=== PATIENT | female | born 1965 | race American Indian/Alaskan Native ===

== ENCOUNTER 2017-07-30 07:29 | Day surgery (SDC) | payer OTHER ==
[2017-07-30] MEDS ORDERED: MARCAINE 0.5% 30 ML INFILTRATI ONE (07:50)
[2017-07-30] MEDS ORDERED: XYLOCAINE 1% 20 mL ONE ×2 (07:50→08:20)
[2017-07-30] MEDS ORDERED: DECADRON ONE ×2 (07:51→10:10)
[2017-07-30] MEDS ORDERED: SUBLIMAZE IV NR (07:57)
[2017-07-30] MEDS ORDERED: DILAUDID IV PRN (07:59)
[2017-07-30] MEDS ORDERED: PERCOCET 5/325 PO PRN (07:59)
[2017-07-30] MEDS ORDERED: PEPCID IV NR (08:00)
[2017-07-30] MEDS ORDERED: VERSED IV NR (08:00)
[2017-07-30] MEDS ORDERED: NACL 0.9% 1000 ML 1,000 ML IV SCH (08:00)
[2017-07-30] MEDS ORDERED: ANCEF/STERILE WATER 2 GM/20 ML IV NR (08:00)
[2017-07-30] MEDS ORDERED: NACL BACTERIOSTATIC INFILTRATI ONE (08:10)
[2017-07-30] MEDS ORDERED: MARCAINE 0.25% INFILTRATI ONE ×3 (08:20→10:45)
[2017-07-30] MEDS ORDERED: ADRENALIN ONE (08:20)
--- NOTE | 2017-07-30 08:45 | Anesthesia Consultation ---
Anesthesia Consult and Med Hx Date of service: 07/30/17 - Airway Anesthetic Teeth Evaluation: Bridges ROM Head & Neck: Adequate Mental/Hyoid Distance: Adequate Mallampati Class: Class II Intubation Access Assessment: Probably Good - Pulmonary Exam CTA: Yes - Cardiac Exam Cardiac Exam: RRR - Pre-Operative Health Status ASA Pre-Surgery Classification: ASA3 Proposed Anesthetic Plan: General - Pulmonary Hx Smoking: No Hx Sleep Apnea: Yes (DX SLEEP APNEA , NO CPAP USE.) - Cardiovascular System Hx Hypertension: Yes (X 6 YRS) - Gastrointestinal Hx Gastroesophageal Reflux Disease: Yes - Endocrine Hx Non-Insulin Dependent Diabetes: Yes - Hematic Hx Anemia: Yes - Other Systems Hx Cancer: No - Additional Comments Anesthesia Medical History Comments: h/o fibromyalgia, RA. ( Prednisone 5 mg - last took it 1 week ago)'
--- NOTE | 2017-07-30 08:46 | Anesthesia Day of Surgery ---
Anesthesia Day of Surgery - Day of Surgery Patient Examined: Yes Patient H&P Reviewed: Yes Patient is NPO: Yes
[2017-07-30] MEDS ORDERED: DIPRIVAN 10 MG/ML IV ONE (09:01)
[2017-07-30] MEDS ORDERED: ZEMURON IV ONE (09:02)
[2017-07-30] MEDS ORDERED: XYLOCAINE CARDIAC IV ONE (09:02)
[2017-07-30] MEDS ORDERED: ADRENALIN IV ONE (09:37)
[2017-07-30] MEDS ORDERED: NACL 0.9% 1000 ML 1,000 ML ONE (09:58)
[2017-07-30] MEDS ORDERED: ZOFRAN ONE (10:10)
[2017-07-30] MEDS ORDERED: ROBINUL ONE (10:14)
[2017-07-30] MEDS ORDERED: NEOSTIGMINE ONE (10:14)
--- NOTE | 2017-07-30 11:11 | Short Stay Summary ---
Short Stay Documentation - Allergies and Medications Current Medications: Allergies No Known Allergies Allergy (Verified 07/22/17 14:59) Home Medications Medication Instructions Recorded Confirmed Last Taken Type Aspirin [Lo-Dose Aspirin EC] 81 mg PO DAILY 07/22/17 07/22/17 1 Week Ago History ~07/23/17 Empagliflozin [Jardiance] 10 mg PO DAILY 07/22/17 07/22/17 07/29/17 History Esomeprazole Magnesium [NexIUM] 40 mg PO QDAY 07/22/17 07/22/17 07/29/17 History Folic Acid 0.4 mg PO QDAY 07/22/17 07/22/17 07/30/17 06:00 History Hydrochlorothiazide [HCTZ] 25 mg PO QDAY 07/22/17 07/22/17 07/30/17 06:00 History Methotrexate Sodium [Trexall] 20 mg PO QWEEK 07/22/17 07/22/17 07/29/17 History Naproxen Sodium [Aleve] 220 mg PO PRN PRN 07/22/17 07/22/17 1 Week Ago History ~07/23/17 Prednisone [predniSONE (Valarie) ER 5 mg PO QDAY 07/22/17 07/22/17 1 Week Ago History TAB] ~07/23/17 Pregabalin [Lyrica] 150 mg PO BID 07/22/17 07/22/17 07/30/17 06:00 History metFORMIN [Glucophage] 500 mg PO BID 07/22/17 07/22/17 07/29/17 History Active Medications Cefazolin Sodium (Ancef/Sterile Water 2 Gm/20 Ml) 2 gm IV PREOP NR Stop: 07/30/17 12:00 Famotidine (Pepcid) 20 mg IV PREOP NR Stop: 07/30/17 12:00 Last Admin: 07/30/17 08:32 Dose: 20 mg Fentanyl (Sublimaze) 100 mcg IV ONCE NR Stop: 07/30/17 12:00 Last Admin: 07/30/17 08:28 Dose: 50 mcg Hydromorphone HCl (Dilaudid) 0.5 mg IV Q10MIN PRN PRN Reason: Pain , Severe (7-10) Stop: 07/30/17 13:00 Sodium Chloride (Nacl 0.9% 1000 Ml) 1,000 mls @ 75 mls/hr IV DIRECT DIPAK Last Admin: 07/30/17 08:15 Dose: 75 mls/hr Midazolam HCl (Versed) 2 mg IV PREOP NR Stop: 07/30/17 23:59 Last Admin: 07/30/17 08:28 Dose: 1 mg Oxycodone/Acetaminophen (Percocet 5/325) 1 tab PO ONCE PRN PRN Reason: Pain, Moderate (4-6) Stop: 07/30/17 15:00 Short Stay Discharge Plan Activity: advance as tolerated Weight Bearing Status: Non-Weight Bearing (of left UE) Diet: regular, advance as tolerated Wound: keep clean and dry, change dressing, per your surgeon's advice Durable Medical Equipment Needed Upon Discharge: other (SHOULDER BRACE WITH ABDUCTION PILLOW AT ALL TIMES) Additional Instructions: FOLLOW DC instruction sheet Follow PT instructions given today and take them to the PT place to follow small RC tear repair protocol Follow up with: KANDI CASTILLO MD [Staff Physician] - 14 Days VICKI MATOS MD [Primary Care Provider] - 7 Days
--- NOTE | 2017-07-30 13:11 | Operative Report ---
AGE: 52. SEX: Female. PREOPERATIVE DIAGNOSES: 1. High-grade partial tear articular side rotator cuff, left shoulder, supraspinatus tear. 2. Impingement syndrome, left shoulder. 3. 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 POSTOPERATIVE DIAGNOSES: 1. Near full thickness tear of the anterior supraspinatus, nondisplaced left shoulder. 2. Impingement syndrome and subacromial bursitis, thickened subacromial bursa with impingement syndrome, left shoulder region. 3. Degenerative joint disease of the left shoulder joint. COMPLICATIONS: None. BLOOD LOSS: Minimal. SURGEON: Tunde Coles M.D. [employer] OFFICER: Vahid George, operative tech. PROCEDURES PERFORMED: 1. Left shoulder arthroscopic rotator cuff repair. 2. Arthroscopic subacromial decompression. 3. Arthroscopic limited debridement. COMPLICATIONS: None. BRIEF HISTORY: The patient is a 52-year-old lady with painful left shoulder, failed conservative treatment, opted for surgical intervention. Risks, benefit discussed, informed consent obtained, brought to the hospital for the above procedure. DETAILS OF THE OPERATIVE REPORT: The patient was taken to the operating, smooth general endotracheal anesthesia, all the bony prominence were carefully padded, placed in the beach chair position. Left shoulder, left upper extremity prepped and draped in sterile fashion. Anatomical landmarks were drawn out. The patient was given antibiotic 2 grams Ancef half an hour before the procedure. Anatomical landmarks were drawn out. Portal sites were marked. Posterior portal was created. Arthroscope introduced. Diagnostic arthroscopy was performed. Biceps tendon and anchor was intact. Labrum had some fraying on the anterior superior aspect. Under direct visualization, anterosuperior portal was created. Limited debridement was performed. There was near full thickness tear of the anterior supraspinatus and this was tacked with 0 PDS suture using a spinal needle. Infraspinatus was intact. There was some grade 3 chondromalacia changes into the glenoid. Labrum overall was intact. Biceps was intact and pristine. Subscapularis was intact. Axillary pouch was pristine, no loose bodies. Humeral head was fairly pristine other than mild arthritic changes in about 5-10% area. Once limited debridement performed and rotator cuff tear from the articular side was tacked. Arthroscope was then switched to the subacromial space. Under direct position, lateral portal was created. Significant amount of bursitis and thickened bursa was noticed and using synovial resector, bursectomy performed and subacromial decompression was performed. Significant soft tissue hypertrophy was then performed underneath the acromion and arthroscope one was used to clean the undersurface of acromion and an acromioplasty was performed using a bur in reverse fashion. Once this was done, we identified the tear on the articular side of the rotator cuff, also was complete and extending to the intraarticular region. The tacking stitch was removed. The clean out and the footprint area was debrided and cleaned and the tear was identified. It was nondisplaced less than a centimeter tear. Lateral portal was widened and a cannula was inserted and then we used an Arthrex FiberTape and rotator cuff tear was repaired in a SpeedFix fashion where the suture which is a FiberTape was passed through the tear, full thickness tear in a horizontal mattress fashion and anchored this laterally after preparing the footprint. Good bleeding surface was achieved and the footprint was prepared and the repair was then anchored laterally with the self-punching SwiveLock anchor. Good fixation was achieved. We tested it and sutures were then cut. Loose floating synovial tissues were removed and bone dust was also debrided and suctioned out completely. After the repair, the cuff moved as a unit. We had great reconstruction repair of the cuff. It moved as a unit. Fluid was then evacuated and portal sites were closed with 3-0 nylon interrupted sutures. Dressing was done with Xeroform, 4 x 4s, ABD and a paper tape. Abduction arm sling was applied and the patient tolerated the procedure well, shifted to recovery room in stable condition. Sponge and needle count was correct. JOB# [id number] SK/NTS
--- NOTE | 2017-07-30 13:49 | Post Anesthesia Evaluation ---
- Post Anesthesia Evaluation Patient Participated: Yes Airway Patent: Yes Stable Respiratory Function: Yes Nausea/Vomiting: No Temp > 96.8F: Yes Pain Manageable: Yes Adequeate Hydration: Yes Anesthesia Complications: No
[2017-07-30 17:57] VITALS: BP 126/77
== END 2017-07-30 07:30 | disposition home or self-care (01) ==
LOC: OR 07:29
PROVIDERS: ATTEND Orthopaedic Surgery
DX: S46.012A Strain of muscle(s) and tendon(s) of the rotator cuff of left shoulder, initial encounter (principal); M19.012 Primary osteoarthritis, left shoulder; M75.42 Impingement syndrome of left shoulder; M75.52 Bursitis of left shoulder; S43.492A Other sprain of left shoulder joint, initial encounter; M94.212 Chondromalacia, left shoulder; E11.9 Type 2 diabetes mellitus without complications; I10 Essential (primary) hypertension; K21.9 Gastro-esophageal reflux disease without esophagitis; M06.80 Other specified rheumatoid arthritis, unspecified site; Z79.82 Long term (current) use of aspirin; Z79.899 Other long term (current) drug therapy; Z79.84 Long term (current) use of oral hypoglycemic drugs; Z98.49 Cataract extraction status, unspecified eye; Z90.89 Acquired absence of other organs; Z90.49 Acquired absence of other specified parts of digestive tract; Z90.710 Acquired absence of both cervix and uterus; Z98.890 Other specified postprocedural states; X58.XXXA Exposure to other specified factors, initial encounter; Y93.89 Activity, other specified; Y92.89 Other specified places as the place of occurrence of the external cause
CPT/HCPCS: 82962; C1713; J0171; J0690; J1100; J2001; J2250; J2405; J2704; J2710; J3010; J7030